=== PATIENT | female | born 1985 | race Two or more races ===

== ENCOUNTER 2024-09-16 07:46 | Emergency (ER) | payer MEDICAID, OTHER ==
[~2024-09-16] VITALS: Ht 162.6 cm; Wt 84.0 kg
--- NOTE | 2024-09-16 08:06 | ED.PDOC ---
GI ASSESSMENT HPI Comments 38 year old female presents to the ED with chief complaint of abdominal pain. Patient reports that she is currently 6 months , however, she has been experiencing epigastric/RUQ abdominal pain since this morning along with associated cough and body aches for the past 2 days. Patient relays there are no sick contacts at home. Patient denies any N/V/D, dizziness, fever, chills, chest pain, or dysuria. Chief Complaint: Flu like Time Seen by MD: 08:04 Reviewed Notes: Nurses Notes, Medications, Allergies Allergies: Coded Allergies: NO KNOWN ALLERGIES (Unverified , 09/16/24) Information Source: Patient Mode of Arrival: Ambulatory Timing: Days Duration: Since onset Prehospital treatment: None Quality: Sharp Vomitus: None Stool: Normal Severity: Moderate Recent: None Recent Hx of: Current Pain Location: Epigastric, RUQ Modifying Factors: Nothing Associated sign and symptoms: Abdominal Pain Past Medical History PAST MEDICAL HISTORY: Denies Surgical History: Denies all surgeries HVAC TECHNICIAN History: No Pertinent HVAC TECHNICIAN History 3 Para 2 Social History Smoker: Non-Smoker Alcohol: Denies ETOH Use Drugs: Denies Drug Use Lives In: Home Constitutional: reports: malaise; denies: chills, diaphoresis, fatigue, fever, sweats, weakness, others EENTM: denies: blurred vision, double vision, ear bleeding, ear discharge, ear drainage, ear pain, ear ringing, eye pain, eye redness, hearing loss, mouth pain, mouth swelling, nasal discharge, nose bleeding, nose congestion, nose pain, photophobia, tearing, throat pain, throat swelling, voice changes, others Respiratory: reports: cough; denies: hemoptysis, orthopnea, SOB at rest, shortness of breath, SOB with excertion, stridor, wheezing, others Cardiovascular: denies: chest pain, dizzy spells, diaphoresis, Dyspnea on exertion, edema, irregular heart beat, left arm pain, lightheadedness, palpitations, PND, syncope, others Gastrointestinal: reports: abdominal pain; denies: abdomen distended, blood streaked bowels, constipated, diarrhea, dysphagia, difficulty swallowing, hematemesis, melena, nausea, poor appetite, poor fluid intake, rectal bleeding, rectal pain, vomiting, others Genitourinary: reports: ; denies: abnormal vagina bleeding, burning, dyspareunia, dysuria, flank pain, frequency, hematuria, incontinence, pain, vagina discharge, urgency, others Neurological: denies: dizziness, fainting, headache, left sided numbness, left sided weakness, numbness, paresthesia, pre-existing deficit, right sided numbness, right sided weakness, seizure, speech problems, tingling, tremors, weakness, others Musculoskeletal: denies: back pain, gout, joint pain, joint swelling, muscle pain, muscle stiffness, neck pain, others Integumetry: denies: bruises, change in color, change in hair/nails, dryness, laceration, lesions, lumps, rash, wounds, others Allergic/Immunocompromised: denies: Difficulty Healing, Frequent Infections, Hives, Itching, others Hematologic/Lymphatic: denies: anemia, blood clots, easy bleeding, easy bruising, swollen glands, others Endocrine: denies: excessive hunger, excessive sweating, excessive thirst, excessive urination, flushing, intolerance to cold, intolerance to heat, unexplained weight gain, unexplained weight loss, others Psychiatric: denies: anxiety, bipolar disorder, depression, hopeless, panic disorder, schizophrenia, sleepless, suicidal, others All Other Systems: Reviewed and Negative Physical Exam General Appearance: Mild Distress, Moderate Distress HEENT: Normal ENT Inspection, PERRL/EOMI Neck: Full Range of Motion, Non-Tender Respiratory: Lungs Clear, No Respiratory Distress, Normal Breath Sounds Cardiovascular: No Murmur, Normal Peripheral Pulses, Regular Rate/Rhythm Breast Exam: Deferred Gastrointestinal: Epigastric, No Organomegaly, No Pulsatile Mass, Normal Bowel Sounds, RUQ, Tenderness, Other (Patient is six months no cramps no vaginal) Genitalia: Deferred Pelvic: Deferred Rectal: Deferred Extremities: No calf tenderness, Normal capillary refill, Normal inspection, Normal range of motion, Non-tender, No pedal edema Neurologic: Alert, returned item clerk II-XII nml as Tested, No Motor Deficits, Normal Affect, Normal Mood, No Sensory Deficits Cerebellar Function: Normal Reflexes: Normal Skin: Dry, Normal Color, Warm Peripheral Pulses: 1+ carotid (R), 1+ carotid (L) Lymphatic: No Adenopathy Was a procedure done? Was a procedure done?: No GI differential Dx Differential Diagnosis: Cholecystitis, Gastritis/PUD, UTI, Dehydration, Diabetes/ DKA, Electrolyte Imbalance, Anemia X-Ray, Labs, Meds, VS Vital Signs Date Time Temp Pulse Resp B/P (MAP) Pulse Ox O2 Delivery O2 Flow Rate FiO2 09/16/24 08:27 82 16 100 Room Air* 0 21 09/16/24 08:27 82 16 121/60 (80) 100 09/16/24 07:56 97.9 110 18 108/64 (79) 97 Lab Test 09/16/24 08:18 09/16/24 08:00 Range/Units White Blood Count 8.2 4.4-10.8 10^3/uL Red Blood Count 4.67 4.0-5.20 10^6/uL Hemoglobin 13.2 12.2-16.2 g/dL Hematocrit 39.2 36.0-46.0 % Mean Corpuscular Volume 84.0 80.0-100.0 fL Mean Corpuscular Hemoglobin 28.3 28.0-32.0 pg Mean Corpuscular Hemoglobin Concent 33.7 32.0-36.0 g/dL Red Cell Distribution Width 18.0 H 11.8-14.3 % Platelet Count 223 140-450 10^3/uL Mean Platelet Volume 7.2 6.9-10.8 fL Neutrophils (%) (Auto) 73.8 37.0-80.0 % Lymphocytes (%) (Auto) 11.2 10.0-50.0 % Monocytes (%) (Auto) 14.6 H 0.0-12.0 % Eosinophils (%) (Auto) 0.1 0.0-7.0 % Basophils (%) (Auto) 0.3 0.0-2.0 % Neutrophils # (Auto) 6.1 1.6-8.6 10 ^3/uL Lymphocytes # (Auto) 0.9 0.4-5.4 10 ^3/uL Monocytes # (Auto) 1.2 0-1.3 10 ^3/uL Eosinophils # (Auto) 0 0-0.8 10 ^3/uL Basophils # (Auto) 0 0-0.2 10 ^3/uL Nucleated Red Blood Cells 0.1 % Platelet Estimate Adequate Sodium Level 136 136-145 mmol/L Potassium Level 3.6 3.5-5.1 mmol/L Chloride Level 105 98-107 mmol/L Carbon Dioxide Level 21 20-31 mmol/L Anion Gap 10 5-15 Blood Urea Nitrogen < 5 L 9-23 mg/dL Creatinine 0.50 L 0.550-1.02 mg/dL Glomerular Filtration Rate Calc 123 >90 mL/min BUN/Creatinine Ratio 10.0 10.0-20.0 Serum Glucose 90 74-106 mg/dL Calcium Level 8.9 8.7-10.4 mg/dL Magnesium Level 1.8 1.6-2.6 mg/dL Total Bilirubin 0.5 0.2-1.0 mg/dL Aspartate Amino Transferase (AST) 36 13-40 U/L Alanine Aminotransferase (ALT) 38 7-40 U/L Alkaline Phosphatase 92 46-116 U/L Total Protein 6.7 5.7-8.2 g/dL Albumin 4.0 3.2-4.8 g/dL Lipase 44 12-53 U/L Urine Color Yellow Yellow Urine Clarity Turbid H Clear Urine pH 6.0 5.0-9.0 Urine Specific [place] 1.024 1.001-1.035 Urine Protein 1+ H Negative Urine Ketones 4+ H Negative Urine Blood Negative Negative /uL Urine Nitrite Negative Negative Urine Bilirubin Negative Negative Urine Urobilinogen Normal Negative mg/dL Urine Leukocyte Esterase 1+ Negative /uL Urine RBC 4 0 - 4 /hpf Urine WBC 13 0 - 5 /hpf Urine Squamous Epithelial Cells Mod <5 /hpf Urine Bacteria Few H None Seen /hpf Urine Mucus Few None Seen Urine Glucose Normal Normal mg/dL Current Medications Medications (Trade) Dose Ordered Sig/Marcell Route Start Time Stop Time Status Last Admin Al Hydrox/Mg Hydrox/Simethicone (Maalox Plus) 30 ml ONCE ONCE PO 09/16/24 08:15 09/16/24 08:16 DC 09/16/24 08:20 Belladonna Alkaloids/ Phenobarbital ( Elixir) 5 ml ONCE ONCE PO 09/16/24 08:15 09/16/24 08:16 DC 09/16/24 08:20 Pantoprazole Sodium (Protonix Tablet) 40 mg ONCE ONCE PO 09/16/24 08:15 09/16/24 08:16 DC 09/16/24 08:20 Gallbladder US: FINDINGS: The liver demonstrates homogenous echotexture without focal mass lesions. The liver measures 16.7 cm. There is hepatopedal color doppler flow in the main portal vein. There is no intrahepatic biliary ductal dilatation. The gallbladder is without evidence of stone or sludge. The gallbladder wall measures 0.2 cm. The common bile duct is not visualized. There is a negative sonographic Carmen's sign. The right kidney measures 9.2 cm. The right kidney is normal in contour, size, and shape. The echogenicity is normal. There is no hydronephrosis. The pancreas is not well visualized due to overlying bowel gas. Visualized portions of the aorta and inferior vena cava are unremarkable. No evidence of ascites. IMPRESSION: 1. No acute abnormality. X-Ray, Labs, Meds, VS Comment Course in the emergency department patient came in because of right-sided and epigastric abdominal pain patient is six months The CBC is normal CMP is negative Lipase is 44 Urine shows 1+ leukocyte esterase with bacteria 4+ ketones and 1+ protein Magnesium 1.8 The ultrasound of the gallbladder is normal as well as the kidneys Images Reviewed?: Images reviewed and evaluated by me Time of 1ST Reevaluation: 09:04 Reevaluation 1ST: Unchanged Time of 2ND Reevaluation: 13:38 Reevaluation 2ND: Improved Consultation: PCP, GI, microbiology technologist Patient Education/Counseling: Diagnosis, Treatment, Prognosis, Need For Follow Up Family Education/Counseling: Diagnosis, Treatment, Prognosis, Need For Follow Up, No Family Present Additional Information - The following tests were ordered, and results were reviewed by me: Gallbladder US, RBC morph, Magnesium, UA, Lipase, CBC, CMP - I reviewed and agreed with the following test results read by other provider: Gallbladder US - I discussed treatments and results with medical personnel. Departure 1 Departure Time of Disposition: 13:39 Impression: Primary Impression: Qualified Codes: Z3A.24 - 24 weeks gestation of Additional Impressions: Epigastric abdominal pain UTI (urinary tract infection) Qualified Codes: N30.00 - Acute cystitis without hematuria Disposition: HOME / SELF CARE / HOMELESS Condition: Fair Additional Instructions: Push fluids and follow up with your ob/gyn doctor and her PCP Take your medication as directed e-Prescriptions Acetaminophen (Acetaminophen Extra Stren) 500 Mg Tab 500 MG PO TID for 5 Days, #15 TAB Prov: DARIA CALVO MD 09/16/24 Famotidine (PEPCID TABLET) 20 Mg Tb 1 TAB PO BID for 10 Days, #20 TAB 5 Refills Prov: DARIA CALVO MD 09/16/24 Metoclopramide Hcl (Reglan) 10 Mg Tab 10 MG PO BID for 5 Days, #10 TAB Prov: DARIA CALVO MD 09/16/24 Discharged With: Self Critical Care Note Critical Care Time?: No Stability Stability form required: No Heart Score Heart Score: Heart Score Response (Comments) Value History N/A 0 EKG N/A 0 Age <45 0 Risk Factors No known risk factors 0 Troponin N/A 0 Total 0 I personally scribed for DARIA CALVO MD ([email or web address]) on 09/16/24 at 08:06. Electronically submitted by Jose Tolentino ([email or web address]). I personally scribed for DARIA CALVO MD ([email or web address]) on 09/16/24 at 12:44. Electronically submitted by Jose Tolentino ([email or web address]). DARIA CALVO MD Sep 16, 2024 08:06
[2024-09-16] MEDS: PANTOPRAZOLE 40 MG TAB PO ONE (08:20)
[2024-09-16] MEDS: ONDANSETRON HCL 4 MG/2 ML VIAL IV ONE (08:20)
[2024-09-16] MEDS: SODIUM CHLORIDE 0.9% 1,000 ML IV ONE (08:20)
[2024-09-16] MEDS: DONNATAL 5ml ORAL Elix (BELLADONNA ALK-PHENOBARB) PO ONE (08:20)
[2024-09-16] MEDS: MAALOX PLUS or MAALOX 30 ML PO ONE (08:20)
[2024-09-16 08:27] VITALS: PULSE 82; RESP 16; O2SAT 100
[2024-09-16 08:52] LABS: Alanine Aminotransferase 38 U/L (7-40); Alkaline Phosphatase 92 U/L (46-116); Anion Gap 10 (5-15); Aspartate Aminotransferase 36 U/L (13-40); Calcium 8.9 mg/dL (8.7-10.4); Carbon Dioxide 21 mmol/L (20-31); Chloride 105 mmol/L (98-107); Glucose 90 mg/dL (74-106); Lipase 44 U/L (12-53); Magnesium 1.8 mg/dL (1.6-2.6); Potassium 3.6 mmol/L (3.5-5.1)
[2024-09-16 08:53] LABS: Bilirubin, Total 0.5 mg/dL (0.2-1.0); Total Protein 6.7 g/dL (5.7-8.2)
[2024-09-16 08:56] LABS: Blood Urea Nitrogen < 5 mg/dL (9-23); Sodium 136 mmol/L (136-145)
[2024-09-16 08:57] LABS: Basophils # (auto) 0 10 ^3/uL (0-0.2); Basophils % (auto) 0.3 % (0.0-2.0); Eosinophils # (auto) 0 10 ^3/uL (0-0.8); Eosinophils % (auto) 0.1 % (0.0-7.0); Hematocrit 39.2 % (36.0-46.0); Hemoglobin 13.2 g/dL (12.2-16.2); Lymphocytes # (auto) 0.9 10 ^3/uL (0.4-5.4); Lymphocytes % (auto) 11.2 % (10.0-50.0); Mean Corpuscular Hemoglobin 28.3 pg (28.0-32.0); Mean Corpuscular Hgb Conc. 33.7 g/dL (32.0-36.0); Monocytes # (auto) 1.2 10 ^3/uL (0-1.3); Monocytes % (auto) 14.6 % (0.0-12.0); Neutrophils # (auto) 6.1 10 ^3/uL (1.6-8.6); Neutrophils % (auto) 73.8 % (37.0-80.0); Nucleated Red Blood Cells % 0.1 %; Platelet Count (auto) 223 10^3/uL (140-450); Red Blood Cells 4.67 10^6/uL (4.0-5.20); White Blood Cell 8.2 10^3/uL (4.4-10.8)
[2024-09-16 10:53] LABS: Urine Bacteria FEW /hpf (None Seen); Urine Blood Negative /uL (Negative); Urine Clarity Turbid (Clear); Urine Color Yellow (Yellow); Urine Mucus FEW (None Seen); Urine Protein, UAD 1+ (Negative); Urine Specific Gravity 1.024 (1.001-1.035); Urine Urobilinogen Normal (Negative); Urine WBC 13 /hpf (0 - 5)
--- NOTE | 2024-09-16 12:18 | DVH ---
EXAM: US GALLBLADDER INDICATION: Right upper quadrant and epigastric abdominal pain TECHNIQUE: Multiple real-time sonographic images were obtained of the right upper quadrant. COMPARISON: None FINDINGS: The liver demonstrates homogenous echotexture without focal mass lesions. The liver measur es 16.7 cm. There is hepatopedal color doppler flow in the main portal vein. There is no intrahepati c biliary ductal dilatation. The gallbladder is without evidence of stone or sludge. The gallbladder wall measures 0.2 cm. The common bile duct is not visualized. There is a negative sonographic Carmen's sign. The right kidney measures 9.2 cm. The right kidney is normal in contour, size, and shape. The echo genicity is normal. There is no hydronephrosis. The pancreas is not well visualized due to overlying bowel gas. Visualized portions of the aorta and inferior vena cava are unremarkable. No evidence of ascites. IMPRESSION: 1. No acute abnormality.
[2024-09-16 12:52] LABS: Platelet Estimate Adequate
[2024-09-16] MEDS ORDERED: METO-281 PO (13:43)
[2024-09-16] MEDS ORDERED: FAMO20TA10 PO (13:43)
[2024-09-16] MEDS ORDERED: ACET-6 PO (13:43)
[2024-09-16 14:00] VITALS: BP 116/69; PULSE 93; RESP 16; TEMP 98.3; O2SAT 100
== END 2024-09-16 14:07 | disposition home or self-care (01) ==
LOC: ER 07:46
DX: O23.12 Infections of bladder in pregnancy, second trimester (principal); O26.892 Other specified pregnancy related conditions, second trimester; O99.512 Diseases of the respiratory system complicating pregnancy, second trimester; Z3A.24 24 weeks gestation of pregnancy; N39.0 Urinary tract infection, site not specified; R10.13 Epigastric pain; R05.9 Cough, unspecified
CPT/HCPCS: 36415; 76705; 80053; 81001; 83690; 83735; 85025; J2405

== ENCOUNTER 2024-12-22 05:14 | Inpatient (IN) | payer MEDICAID ==
[2024-12-21 10:48] LABS: Basophils # (auto) 0 10 ^3/uL (0-0.2); Basophils % (auto) 0.3 % (0.0-2.0); Eosinophils # (auto) 0.2 10 ^3/uL (0-0.8); Eosinophils % (auto) 2.4 % (0.0-7.0); Hematocrit 41.6 % (36.0-46.0); Hemoglobin 14.5 g/dL (12.2-16.2); Lymphocytes # (auto) 1.9 10 ^3/uL (0.4-5.4); Lymphocytes % (auto) 24.8 % (10.0-50.0); Mean Corpuscular Hemoglobin 31.1 pg (28.0-32.0); Mean Corpuscular Hgb Conc. 34.8 g/dL (32.0-36.0); Mean Corpuscular Volume 89.4 fL (80.0-100.0); Monocytes # (auto) 0.7 10 ^3/uL (0-1.3); Monocytes % (auto) 8.8 % (0.0-12.0); Neutrophils # (auto) 4.9 10 ^3/uL (1.6-8.6); Neutrophils % (auto) 63.7 % (37.0-80.0); Nucleated Red Blood Cells % 0.1 %; Platelet Count (auto) 228 10^3/uL (140-450); Red Blood Cells 4.66 10^6/uL (4.0-5.20); Red Cell Distribution Width 14.9 % (11.8-14.3); White Blood Cell 7.7 10^3/uL (4.4-10.8)
[2024-12-21 10:51] LABS: Urine Bacteria FEW /hpf (None Seen); Urine Blood Negative /uL (Negative); Urine Clarity Turbid (Clear); Urine Color Yellow (Yellow); Urine Hyaline Cast FEW /lpf (0 - 2); Urine Mucus FEW (None Seen); Urine Protein, UAD TRACE (Negative); Urine Specific Gravity 1.022 (1.001-1.035); Urine Squamous Epithelial Cell FEW /hpf (<5); Urine Urobilinogen Normal (Negative); Urine WBC 4 /HPF (0-5)
[2024-12-21 11:03] LABS: Alanine Aminotransferase 14 U/L (7-40); Albumin 3.9 g/dL (3.2-4.8); Anion Gap 11 (5-15); Aspartate Aminotransferase 16 U/L (13-40); BUN/Creatinine Ratio 11.5 (10.0-20.0); Bilirubin, Total 0.6 mg/dL (0.2-1.0); Calcium 9.3 mg/dL (8.7-10.4); Carbon Dioxide 21 mmol/L (20-31); Chloride 106 mmol/L (98-107); Potassium 3.6 mmol/L (3.5-5.1); Sodium 138 mmol/L (136-145); Total Protein 6.6 g/dL (5.7-8.2)
[2024-12-21 11:04] LABS: Alkaline Phosphatase 203 U/L (46-116); Blood Urea Nitrogen 7 mg/dL (9-23); Glucose 111 mg/dL (74-106); INR 0.96 (0.9-1.15); Partial Thromboplastin Time 30.6 SEC (24.5-34.5); Prothrombin Time 10.2 sec (9.3-11.8)
[2024-12-21 11:04] LABS: Amphetamine Screen, Urine Neg (NEGATIVE); Barbiturate Scree,Urine Neg (NEGATIVE); Benzodiazephine Screen, Urine Neg (NEGATIVE); Cannabinoid Screen, Urine Neg (NEGATIVE); Cocaine Screen, Urine Neg (NEGATIVE); Opiate Scree,Urine Neg (NEGATIVE); Phencyclidine Screen, Urine Neg (NEGATIVE)
[~2024-12-22] VITALS: Ht 162.6 cm; Wt 84.4 kg
[2024-12-22] VITALS (21 sets, daily range): BP systolic 99–132; BP diastolic 59–81; PULSE 66–89; RESP 16–18; TEMP 97.4–98.4; O2SAT 96–100
[~2024-12-22 05:14] MED LIST: ACET-6 PO; FAMO20TA10 PO; METO-281 PO
--- NOTE | 2024-12-22 05:14 | DVHHP ---
ADMIT DATE: 12/22/2024 CHIEF COMPLAINT: Desires repeat section with bilateral tubal ligation. HISTORY OF PRESENT ILLNESS: The patient is a 39-year-old 4, para 2 with EDC 12/29/2024, estimated gestational age of 39 weeks, admitted for repeat section with bilateral tubal ligation, use of Filshie clips explained to the patient, risks, complication, failure rate, all options discussed with the patient. The patient fully understands. She wishes to proceed with planned procedure. PAST MEDICAL HISTORY: None. PAST SURGICAL HISTORY: Two sections. SOCIAL HISTORY: None. FAMILY HISTORY: None. OBSTETRIC AND GYNECOLOGIC HISTORY: Two sections. Blood type O positive, rubella immune. ALLERGIES: No known drug allergies. REVIEW OF SYSTEMS: Consistent with HPI. PHYSICAL EXAMINATION: VITAL SIGNS: Stable, afebrile. HEENT: Within normal limits. CARDIOVASCULAR: Regular rate and rhythm. LUNGS: Clear to auscultation. BREASTS: Symmetrical. No masses. ABDOMEN: Gravid. PELVIC: Cervix closed, thick and high. EXTREMITIES: No clubbing, cyanosis or edema. IMPRESSION: * Intrauterine at 39 weeks with previous section x2. * Desires repeat section with bilateral tubal ligation. * AMA. PLAN: Repeat section with bilateral tubal ligation. Informed consent obtained. Risks, complication of surgery including infection, bleeding, hematoma formation, injury to bowel, bladder, surrounding organs, possibility of DVT, pulmonary embolism, risk of anesthesia discussed with the patient. Options reviewed. Failure rate with tubal sterilization, and use of Filshie clip discussed with the patient. The patient wishes to proceed with planned procedure. DO KAYLEEN Tan TID: [id number] RECEIPT: [id number]
[2024-12-22] MEDS: METOCLOPRAMIDE HCL 5MG/ml INJ 2ml VIAL IV ONE (05:30)
[2024-12-22] MEDS: LACTATED RINGER'S 1,000 ML IV ONE (06:27)
[2024-12-22] MEDS: LACTATED RINGER'S 1,000 ML IV SCH (06:28)
[2024-12-22] MEDS: ceFAZolin 2 GM/D5W50ml 50 ML IV ONE (06:32)
[2024-12-22] MEDS ORDERED: DOCU-94 PO (06:55)
[2024-12-22] MEDS ORDERED: IBUP-1456 PO (06:55)
[2024-12-22] MEDS ORDERED: HYDR-4072 PO (06:55)
[2024-12-22] MEDS: GUM (CHEWING) 1 GUM CHEW CHEW ONE (07:00)
[2024-12-22] MEDS ORDERED: ceFAZolin 1GM/50ML 50 ML IV SCH (07:00)
[2024-12-22] MEDS: SODIUM CITR/CITRIC ACID ORAL SOLN 30 ML PO ONE (07:00)
[2024-12-22] MEDS: LACT. RINGERS/OXYTOCIN 20UNITS 1,000 ML IV ONE (07:00)
[2024-12-22] MEDS ORDERED: ONDANSETRON HCL 4 MG/2 ML VIAL IV PRN ×3 (07:00→10:00)
[2024-12-22] MEDS ORDERED: MIDAZOLAM HCL 2MG/2ML 2ml VIAL (1mg/ml) ONE (07:14)
[2024-12-22] MEDS ORDERED: MORPHINE SULF PF 5 MG/10 ML VIAL ONE (07:14)
[2024-12-22] MEDS ORDERED: fentaNYL CITRATE 100 MCG/2 ML VL ONE (07:14)
[2024-12-22] MEDS ORDERED: KETAMINE 50mg/ML 1ml syringe ONE (07:55)
--- NOTE | 2024-12-22 08:09 | DVHOP2 ---
Operative Report DATE OF OPERATION: 12/22/24 PREOPERATIVE DIAGNOSES: 1. Term , desires repeat section. 2. Desires bilateral tubal ligation,prvious csx2,ama POSTOPERATIVE DIAGNOSES: 1. Term , desires repeat section. 2. same,nuchal cordx1 PROCEDURES: Repeat section with bilateral tubal ligation via Filschie Clips SURGEON: Milan Rowland D.O./tony ANESTHESIOLOGIST: Dr. beasley TYPE OF ANESTHESIA : spinal ESTIMATED BLOOD LOSS: 500 mL CONSENT: The patient was informed of the risks and benefits of the procedure. These include but are not limited to , complications of anesthesia, postoperative infection, incomplete relief of symptoms, recurrence of symptoms, damage to blood vessels, nerves and tendons, deep venous thrombosis, pulmonary embolism and possible need for repeat surgery in the future. Surgery was opted. FINDINGS: Baby [g] with apgars [8] and [9]. Grossly normal appearing tubes and ovaries. some pelvic and tubal filmy adhesions noted TISSUE TO PATHOLOGY: Placenta. PROCEDURE IN DETAIL: The patient was taken to the operating room where she was placed under spinal anesthesia. She was then prepped and draped in the usual sterile manner in supine position with a leftward tilt. A Pfannenstiel skin incision was then made 2 cm above the symphysis pubis. This incision was carried to the underlying layer of fascia. The fascia was nicked in the midline and the incision was extended laterally. The superior aspect of the fascial incision was grasped and elevated. Underlying rectus muscle was dissected off bluntly. The same procedure was done to the inferior aspect of the fascial incision. The rectus muscles were then in the midline. Peritoneum was identified and entered. Peritoneal incision was extended superiorly and inferiorly with good visualization of the bladder. Bladder blade was inserted. Vesicouterine peritoneum was identified and entered. Lower uterine segment was incised in a transverse fashion. The infant was delivered from vertex presentation. The infant was baby [f] with Apgars of [8] and [9]. Placenta was then removed manually. Uterus was exteriorized and cleared off all clots and debris. Uterine incision was repaired using 0 Vicryl in a double-layered fashion. No bleeding was noted. Bilateral tubal ligation was then performed using [place]. Placed in the ampullary region and identifying the fimbria distally. The isthmic portion of the right tube was clipped using Filschie Clip. The same procedure was done on the opposite side. No bleeding was noted. Peritoneum was closed using 0 Vicryl, fascia was closed using 0 Maxon, and skin was closed using chantal. Estimated blood loss was noted to be 500 mL. The patient tolerated the procedure well. She was taken to the recovery room in stable condition. Visit Coding OBGYN Date of Service: Dec 22, 2024 Billing Provider: MILAN ROWLAND DO NSH TEACHER Common Visit Codes: 20166-NKJ/OBS SAME DATE (HIGH) NSH TEACHER Procedure Codes: 34750-PZYVT @ TIME OF , 37584-J-REIJPXF DELIVERY ONLY MILAN ROWLAND DO Dec 22, 2024 08:09
--- NOTE | 2024-12-22 08:12 | POSTOP ---
Post-Operative Note Post-Operative Note Preop Diagnosis term preg desires rcs w/btl ama Postop Diagnosis: same,nuchal cord Operation performed rcs with btl Specimen baby girl apgars 8-9 Anesthesia: Regional Anesthesiologist: ramos Blood Loss(fluid mgmt) 500ml Surgeon Milan Rowland Lens Generating Machine Tender tony Implant filschie Complications & Mgmt none Date 12/22/24 Time 08:09 Visit Coding OBGYN Date of Service: Dec 22, 2024 Billing Provider: MILAN ROWLAND DO HOUSING ASSISTANT Common Visit Codes: 21364-USB/OBS SAME DATE (MOD), 93323-ZXN/OBS SAME DATE (HIGH) MILAN ROWLAND DO Dec 22, 2024 08:12
[2024-12-22] MEDS ORDERED: ONDANSETRON HCL 4 MG/2 ML VIAL ONE (08:13)
[2024-12-22] MEDS ORDERED: oxyTOCIN 10 UNIT/ML 10ML VIAL ONE (08:13)
[2024-12-22] MEDS ORDERED: ePHEDrine SULFATE 50 MG/ML AMP ONE (08:14)
[2024-12-22] MEDS ORDERED: HYDROmorphone HCL 2 MG/ML VL/or syr IV PRN (09:30)
[2024-12-22] MEDS ORDERED: diphenhdrAMINE HCL 50 MG/1 ML VL IV PRN (09:30)
[2024-12-22] MEDS ORDERED: NALOXONE HCL 0.4 MG/ML VIAL IV PRN (09:30)
[2024-12-22] MEDS ORDERED: DexAMETHasone SOD PHOS 10MG/1ML VIAL INJ IV PRN (09:30)
[2024-12-22] MEDS: KETOROLAC TROMETH 30 MG/ML 1ML VIAL IV PRN (09:57)
[2024-12-22] MEDS: ceFAZolin 1GM/50ML 50 ML IV SCH (15:15)
[2024-12-22] MEDS: ACETAMINOPHEN IV 1000 MG/100ML (10MG/ML) IV PRN (19:43)
--- NOTE | 2024-12-22 20:29 | DVHPN2 ---
Progress Note Date Seen: Dec 22, 2024 Subjective S: Lochia rubra minimal, changing position in bed frequently by herself, gaining sensation back in her lower extremities. Looking forward to discontinuation of Lozano catheter and ambulating in the next hour. Yet to pass gas. w/o problem. Reports no pain at this time vital signs Vital Sign Date Time Temp Pulse Resp B/P (MAP) Pulse Ox O2 Delivery O2 Flow Rate FiO2 12/22/24 17:26 78 17 96 12/22/24 15:30 98.4 108/69 (82) 98.4 12/22/24 11:49 Room Air 12/22/24 08:37 100 medications Current Medications Medications Dose Ordered Sig/Marcell Route Start Time Stop Time Status Last Admin Dose Admin Lactated Ringer's 1,000 ml @ 125 mls/hr Q8H IV 12/22/24 05:30 12/22/24 06:28 125 MLS/HR Cefazolin Sodium 50 ml @ 100 mls/hr Q8H IV 12/22/24 15:00 12/23/24 07:29 12/22/24 15:15 100 MLS/HR Ondansetron HCl 4 mg Q4HP PRN IV 12/22/24 10:00 Acetaminophen 1,000 mg Q8HPRN PRN IV 12/22/24 10:00 12/23/24 09:59 12/22/24 19:43 1,000 MG laboratory and microbiology Laboratory Tests 12/21/24 10:14 Test 12/21/24 10:14 Range/Units Serum Glucose 111 H 74-106 mg/dL Objective A&O x3 NAD. Afebrile, VSS Chest: heart and lung sounds normal. Breasts: Nipples intact w/o cracks or soreness Abdomen: normal BS, soft, non-tender, no rebound or guarding, fundus firm @ U Lower abdominal Incision site with Sylke dressing on, same clean, dry and intact. No edema, erythema or induration Extremities: no edema or tenderness Lochia - minimal Assessment/Plan 39 yo now post operative & ppd #0 s/p Repeat with BTL doing well. Blood Type: O Rh: Positive Breast feeding Rubella Immune / non immune Pain control with IV medications PP BCM Plan: N/A Plan discussed with: Patient Visit Coding OBGYN Date of Service: Dec 22, 2024 Billing Provider: DEENA LORENZO CNM ELECTRICIAN CRANE MAINTENANCE Common Visit Codes: [id number] INP/OBS CARE(HIGH) DEENA LORENZO CNM Dec 22, 2024 20:29
[2024-12-22 21:00] LABS: Basophils # (auto) 0 10 ^3/uL (0-0.2); Basophils % (auto) 0.5 % (0.0-2.0); Eosinophils # (auto) 0.1 10 ^3/uL (0-0.8); Eosinophils % (auto) 1.1 % (0.0-7.0); Hematocrit 35.7 % (36.0-46.0); Hemoglobin 12.5 g/dL (12.2-16.2); Lymphocytes # (auto) 1.8 10 ^3/uL (0.4-5.4); Lymphocytes % (auto) 16.9 % (10.0-50.0); Mean Corpuscular Hemoglobin 30.9 pg (28.0-32.0); Mean Corpuscular Volume 88.3 fL (80.0-100.0); Monocytes # (auto) 0.9 10 ^3/uL (0-1.3); Neutrophils # (auto) 7.5 10 ^3/uL (1.6-8.6); Neutrophils % (auto) 72.5 % (37.0-80.0); Platelet Count (auto) 192 10^3/uL (140-450); Red Blood Cells 4.05 10^6/uL (4.0-5.20); Red Cell Distribution Width 14.4 % (11.8-14.3); White Blood Cell 10.4 10^3/uL (4.4-10.8)
[2024-12-23] VITALS (13 sets, daily range): BP systolic 111–129; BP diastolic 60–79; PULSE 74–92; RESP 15–18; TEMP 97.8–98.5; O2SAT 96–100
--- NOTE | 2024-12-23 05:23 | DVHPN2 ---
Progress Note Date Seen: Dec 23, 2024 Subjective S: Lochia minimal. Clear liquid diet well tolerated. Ambulating and voiding well w/o feeling dizzy or lightheaded. Pain relieved with analgesics. Passing flatus but no BM yet. w/o problem Desires and Requests to be discharged tomorrow vital signs Vital Sign Date Time Temp Pulse Resp B/P (MAP) Pulse Ox O2 Delivery O2 Flow Rate FiO2 12/23/24 04:00 92 16 98 12/23/24 03:00 98.5 124/74 (91) 98.5 12/22/24 19:30 Room Air 12/22/24 08:37 100 Total Intake and Output 12/22/24 12/22/24 12/23/24 15:00 23:00 07:00 Output Total 600 ml 1200 ml Balance -600 ml -1200 ml medications Current Medications Medications Dose Ordered Sig/Marcell Route Start Time Stop Time Status Last Admin Dose Admin Lactated Ringer's 1,000 ml @ 125 mls/hr Q8H IV 12/22/24 05:30 12/22/24 06:28 125 MLS/HR Cefazolin Sodium 50 ml @ 100 mls/hr Q8H IV 12/22/24 15:00 12/23/24 07:29 12/22/24 22:57 100 MLS/HR Ondansetron HCl 4 mg Q4HP PRN IV 12/22/24 10:00 Acetaminophen 1,000 mg Q8HPRN PRN IV 12/22/24 10:00 12/23/24 09:59 12/23/24 04:30 1,000 MG laboratory and microbiology Laboratory Tests 12/22/24 20:52 12/21/24 10:14 Test 12/21/24 10:14 Range/Units Serum Glucose 111 H 74-106 mg/dL Objective O: A&O x3 NAD. Afebrile, VSS Chest: heart and lung sounds normal. Breasts: Nipples intact w/o cracks or soreness Abdomen: normal BS, soft, non-tender, no rebound or guarding, fundus firm @ U- 1, Lower abdominal Incision site with Sylke dressing on, same clean, dry and intact. No edema, erythema or induration Extremities: no edema or tenderness Lochia - minimal Assessment/Plan A/P: 39 yo now Post operative & ppd #1 Repeat Section with BTL doing well. Blood Type: O Rh: Positive Breast feeding Rubella Immune Pain control with oral medications Bowel regimen: Increase fluid intake and fiber in diet, Laxative PRN PP BCM Plan: N/A Discharge plan: May discharge home tomorrow if condition remains stable Plan discussed with: Patient Visit Coding OBGYN Date of Service: Dec 23, 2024 Billing Provider: DEENA LORENZO CNM EMBRYOLOGY PROFESSOR Common Visit Codes: [id number] INP/OBS CARE(HIGH) DEENA LORENZO CNM Dec 23, 2024 05:23
[2024-12-23] MEDS: SIMETHICONE 80 MG CHEWABLE TABLET PO SCH (08:02)
[2024-12-23] MEDS: HYDROcodone-ACET 5/325MG TAB PO PRN (08:02)
[2024-12-23 08:35] LABS: Basophils # (auto) 0 10 ^3/uL (0-0.2); Basophils % (auto) 0.3 % (0.0-2.0); Eosinophils # (auto) 0.1 10 ^3/uL (0-0.8); Eosinophils % (auto) 1.1 % (0.0-7.0); Hemoglobin 12.6 g/dL (12.2-16.2); Lymphocytes # (auto) 1.5 10 ^3/uL (0.4-5.4); Lymphocytes % (auto) 15.6 % (10.0-50.0); Mean Corpuscular Hemoglobin 31.4 pg (28.0-32.0); Mean Corpuscular Hgb Conc. 34.9 g/dL (32.0-36.0); Mean Corpuscular Volume 89.9 fL (80.0-100.0); Monocytes # (auto) 0.8 10 ^3/uL (0-1.3); Monocytes % (auto) 8.3 % (0.0-12.0); Neutrophils # (auto) 7.2 10 ^3/uL (1.6-8.6); Neutrophils % (auto) 74.7 % (37.0-80.0); Platelet Count (auto) 203 10^3/uL (140-450); Red Blood Cells 4.01 10^6/uL (4.0-5.20); Red Cell Distribution Width 14.5 % (11.8-14.3); White Blood Cell 9.6 10^3/uL (4.4-10.8)
[2024-12-23] MEDS: IBUPROFEN 800 MG TAB PO PRN (13:28)
[2024-12-24] MEDS: TETRACAINE 1% INJ 2 ML VIAL IJ ONE (00:48)
[2024-12-24 03:02] VITALS: BP 131/85; PULSE 88; RESP 18; TEMP 98.2; O2SAT 98
--- NOTE | 2024-12-24 04:00 | DVHDS2 ---
Obstetrics Discharge Summary Obstetrics Discharge Summary Date of Admission: Dec 22, 2024 Date of Discharge: Dec 24, 2024 Reason For Admission: Section (Repeat) Procedures: None Intrapartum Procedures: (Low Cervical Transverse) Procedures: None Operative Complicat: None Discharge Diagnosis: Term -Delivered Discharge Information: Activity (Light activity, pelvic rest), Diet (Regular), Medications (Motrin, Colace, vits), Instructions (Routine), Discharge to (Home) Visit Coding OBGYN Date of Service: Dec 24, 2024 Billing Provider: HUGH BUI CNM ESTIMATION MANAGER Common Visit Codes: 57301-NPB/OBS DISCH DAY >30MIN ESTIMATION MANAGER Procedure Codes: [id number] W/ CARE HUGH BUI CNM Dec 24, 2024 04:00
--- NOTE | 2024-12-24 04:05 | DVHPN2 ---
Chief Complaints Patient reports: No new complaints (Coping well. Denies any sx. Ambulates and voids well. Tolerating foods well. Breast feeds well. Desires to go home. Denies blues) Nursing reports: No new complaints Objective Vitals Vital Signs Date Time Temp Pulse Resp B/P (MAP) Pulse Ox O2 Delivery O2 Flow Rate FiO2 12/24/24 03:02 98.2 88 18 131/85 (100) 98 98.2 12/23/24 18:45 Room Air 12/22/24 08:37 100 Medications Current Medications Medications (Trade) Dose Ordered Sig/Marcell Route PRN Reason Start Time Stop Time Status Last Admin Acetaminophen/ Hydrocodone Bitart (Savery 5/325MG Tab) 1 tab Q4HPRN PRN PO FOR PAIN 1-6 12/23/24 07:30 Acetaminophen/ Hydrocodone Bitart (Savery 5/325MG Tab) 2 tab Q4HPRN PRN PO FOR PAIN 7-10 12/23/24 07:30 12/24/24 01:58 Dimethicone (Mylicon Tab) 80 mg QID PO 12/23/24 12:00 12/23/24 18:33 Ibuprofen (Motrin Tablet) 800 mg Q8HP PRN PO BREAKTHROUGH PAIN 12/23/24 07:30 12/23/24 22:14 General: Normal Lungs: Normal, Normal breath sounds, Lungs clear Cardiovascular: Normal, Regular rate and rhythm Abdominal: Normal (Incision clean, dry, and intact. Fundus firm 2fb below umbilcus. +BS x 4Q), Soft Musculoskeletal: Normal Extremities: Normal (Trisha's neg) Skin: Normal Others Breasts soft, nipples intact Lochia minimal, no odor Studies Laboratory Tests 12/23/24 07:50 12/21/24 10:14 Test 12/21/24 10:14 Range/Units Serum Glucose 111 H 74-106 mg/dL Ass/Plan Assessment 2nd PP/Post OP day Desires to go home Plan D/c home with instructions RTC 2 weeks and PRN HUGH BUI CNM Dec 24, 2024 04:05
[2024-12-24 07:00] VITALS: BP 134/89; PULSE 60; RESP 18; TEMP 98; O2SAT 95
[2024-12-24 09:04] VITALS: TEMP 36.7
[2024-12-24 11:00] VITALS: BP 143/86; PULSE 81; RESP 17; TEMP 98.1; O2SAT 98
[2024-12-24] MEDS: HYDROcodone-ACET 5/325MG TAB PO PRN (12:24)
[2024-12-24 14:58] VITALS: BP 123/80; PULSE 82; RESP 17; TEMP 98.2; O2SAT 98
[2024-12-24 19:00] VITALS: BP 136/79; PULSE 107; RESP 18; TEMP 98.5; O2SAT 98
== END 2024-12-24 19:43 | disposition home or self-care (01) | DRG 539 ==
LOC: LDRP 05:14 → EDSTATUS 05:21 → NUR 13:22 → LDRP 14:57
PROVIDERS: ADMIT Obstetrics & Gynecology; ATTEND Obstetrics & Gynecology
PROC: 0UL70CZ Occlusion of Bilateral Fallopian Tubes with Extraluminal Device, Open Approach (ICD-10-PCS; 2024-12-22)
PROC: 10D00Z1 Extraction of Products of Conception, Low, Open Approach (ICD-10-PCS; principal; 2024-12-22 07:12)
DX: O34.211 Maternal care for low transverse scar from previous cesarean delivery (principal); R71.0 Precipitous drop in hematocrit; N73.6 Female pelvic peritoneal adhesions (postinfective); O69.81X0 Labor and delivery complicated by cord around neck, without compression, not applicable or unspecified; O99.892 Other specified diseases and conditions complicating childbirth; Z30.2 Encounter for sterilization; Z37.0 Single live birth; Z3A.39 39 weeks gestation of pregnancy
CPT/HCPCS: 36415; 80053; 80307; 81001; 85025; 85610; 85730; 86780; 86803; 86850; 86900; 86901; 94760; 94762; 96360; 96361; G0378; J0131; J1885; J2250; J2405; J2590